=== PATIENT | female | born 1950 ===

== ENCOUNTER 2022-04-09 22:57 | Inpatient (IN) | payer MEDICARE ==
[~2022-04-09] VITALS: Ht 175.3 cm; Wt 62.6 kg
[2022-04-09] MEDS ORDERED: CARB1TAB21 PO (23:07)
[2022-04-09] MEDS ORDERED: MIRT-93 PO (23:07)
--- NOTE | 2022-04-09 23:14 | NUR ---
Pt medically cleared by Dr. Espinosa.
--- NOTE | 2022-04-09 23:45 | NUR ---
report given to November RN
[2022-04-10] MEDS ORDERED: TEMAZEPAM 7.5 MG CAPSULE PO PRN
[2022-04-10] MEDS ORDERED: ACETAMINOPHEN 325 MG TABLET PO PRN
[2022-04-10] MEDS ORDERED: MAG HYDROX/AL HYDROX/SIMETH 30 ML LIQUID UDC PO PRN
[2022-04-10] MEDS ORDERED: MAGNESIUM HYDROXIDE 30 ML LIQUID UDC PO PRN
--- NOTE | 2022-04-10 00:09 | NUR ---
Pt. admitted to MHU room 139B, under care of Dr. Willams Belongs List completed May RN aware of patient's arrival
--- NOTE | 2022-04-10 01:42 | NUR ---
GPS NOTES: Patient admitted to MHU, on 5150, as per hold patient had been aggressive and threatening her . Paranoid, delusional, tried to elope from grocery store, non-compliant with medications. Patient BIB nurse from Er via wheelchair. Upon face to face evaluation, patient is A&Ox3, ambulatory w/steady gait, her speech is clear, she is cooperative with initial interview process. She's able to understand concepts and verbalized understanding of the reason she's being admitted to the unit. Patient able to answer questions being asked. Patient appears to be well-nourish, no distress noted, and vital signs are normal. Head to toe assessment done, skin appears to be intact. Patient oriented to the unit and unit rules. She showered and assisted to her room. Patient rights explained to her, given her the rights handbook and advisement at bedside. Patient safety in place.
[2022-04-10 02:06] VITALS: BP 109/68
[2022-04-10 07:30] VITALS: BP 96/54
--- NOTE | 2022-04-10 09:00 | NUR ---
Calm and compliant with taking of medications. Interacts and attends activity.
[2022-04-10] MEDS: DIVALPROEX SPRINKLE 125 MG CAP.SPRINK PO SCH ×2 (09:22→20:53)
[2022-04-10] MEDS: ESCITALOPRAM OXALATE 10 MG TABLET NG SCH (09:22)
--- NOTE | 2022-04-10 12:44 | NUR ---
GPS: Nursing Notes: 5250 Hearing Request: Staff gave copy of 5250 to patient. Explained 5250 and informed patient that a certification review hearing will held within four days. Patient was inform that patient's right advocate will talk to her to provide assistance in preparing for the hearing or to answer questions or to provide other assistance. The court has been notified of this certification on this day via [facility] portal.
--- NOTE | 2022-04-10 13:30 | NUR ---
Eating well. At the activity area, reading books.
[2022-04-10 16:00] VITALS: BP 90/48
--- NOTE | 2022-04-10 18:09 | NUR ---
With family visitors, stayed at the dining area. Eating well
[2022-04-10 21:17] VITALS: BP 101/55
[2022-04-11 08:00] VITALS: BP 105/47
[2022-04-11 08:17] LABS: BILIRUBIN,TOTAL 0.8 mg/dL (0.2-1.0); CREATININE 0.6 mg/dL (0.6-1.3); POTASSIUM 4.2 mmol/L (3.5-5.1); TOTAL PROTEIN, SERUM 6.6 g/dL (6.4-8.2)
[2022-04-11] MEDS: DIVALPROEX SPRINKLE 125 MG CAP.SPRINK PO SCH ×2 (08:30→20:04)
[2022-04-11] MEDS: ESCITALOPRAM OXALATE 10 MG TABLET NG SCH (08:30)
[2022-04-11 16:17] VITALS: BP 109/58
[2022-04-11 19:43] VITALS: BP 112/51
[2022-04-11] MEDS: CARBIDOPA/LEVODOPA 25-100MG TABLET PO SCH (21:34)
[2022-04-12] MEDS ORDERED: ESCITALOPRAM OXALATE 10 MG TABLET PO SCH (01:16)
--- NOTE | 2022-04-12 05:12 | NUR ---
GPS: Remains asleep at this time. Breathing even and unlabored. Took bedtime meds.last night after some persuasion from staff. Pt.was paranoid and suspicious. Re-directed and re-assured prn. No aggressive behavior noted. Needs attended. Will continue to monitor.
[2022-04-12 07:52] VITALS: BP 113/70
[2022-04-12] MEDS: CARBIDOPA/LEVODOPA 25-100MG TABLET PO SCH ×4 (09:05→17:02)
[2022-04-12] MEDS: ESCITALOPRAM OXALATE 10 MG TABLET PO SCH (09:05)
[2022-04-12] MEDS: DIVALPROEX SPRINKLE 125 MG CAP.SPRINK PO SCH ×2 (09:05→20:33)
[2022-04-12] MEDS: PROTEIN SUPPLEMENT (PROSTAT) 30 ML LIQUID PO SCH (14:00)
[2022-04-12] MEDS: ENSURE ENLIVE (VAN) 240 ML LIQUID PO SCH ×2 (14:00→17:00)
--- NOTE | 2022-04-12 15:28 | NUR ---
JULIUS Initial Discharge Note: Pt currently resides at home with her , Nirav ([phone]) and full-time roll former located at [address] [place] [address]. Per Nirav, he would like pt to return home upon discharge. JULIUS will continue to work with pt, family and MD to ensure a safe and proper discharge plan.
[2022-04-12 16:06] VITALS: BP 111/63
--- NOTE | 2022-04-12 17:25 | NUR ---
GPS: Nursing Notes: Destructive Behavior To Others: Patient is awake and responding to her name, impaired judgment, paranoid behavior, sundown behavior, stated "MY wants me .. He is going to buried me here..", pressured and delayed speech, resistant with nursing care, refusing to participate in therapeutic groups, unable to formulate a viable plan for self care, needs a lot of prompting to be compliant with her medications, believes that staff is trying to poison her, redirected and reoriented during shift, continue to monitor for safety, continue with treatment plan.
[2022-04-12 19:57] VITALS: BP 102/68
--- NOTE | 2022-04-13 05:59 | NUR ---
GPS:pt remain paranoid stated people wants to to see me .Patient is awake and responding to her name, impaired judgment, pressured and delayed speech, resistant with nursing care, unable to formulate a viable plan for self care, needs a lot of prompting to be compliant with her medications, believes that staff is trying to poison her, redirected and reoriented during shift, assisted with adl's. continue plan of care.
--- NOTE | 2022-04-13 06:38 | NUR ---
slept 7.30 hrs through the night.
[2022-04-13 07:40] LABS: HEMATOCRIT 38.6 % (31.2-41.9); MEAN CORPUSCULAR HEMOGLOBIN 32.7 uug (24.7-32.8); MEAN CORPUSCULAR VOLUME 96.5 fL (75.5-95.3); PLATELET COUNT (AUTO) 266 K/uL (179-408)
[2022-04-13 07:53] LABS: THYROID STIMULATING HORMONE 2.413 mIU/mL (0.358-3.740)
[2022-04-13] MEDS: PROTEIN SUPPLEMENT (PROSTAT) 30 ML LIQUID PO SCH (08:00)
[2022-04-13] MEDS: ENSURE ENLIVE (VAN) 240 ML LIQUID PO SCH ×2 (08:00→17:00)
[2022-04-13 08:02] VITALS: BP 117/68
[2022-04-13 08:15] LABS: BILIRUBIN,TOTAL 0.8 mg/dL (0.2-1.0); CREATININE 0.6 mg/dL (0.6-1.3); MAGNESIUM 2.1 mg/dL (1.8-2.4); POTASSIUM 4.2 mmol/L (3.5-5.1); TOTAL PROTEIN, SERUM 6.6 g/dL (6.4-8.2)
[2022-04-13] MEDS: DIVALPROEX SPRINKLE 125 MG CAP.SPRINK PO SCH ×2 (08:47→20:20)
[2022-04-13] MEDS: CARBIDOPA/LEVODOPA 25-100MG TABLET PO SCH ×3 (08:47→16:52)
[2022-04-13] MEDS: ESCITALOPRAM OXALATE 10 MG TABLET PO SCH (08:47)
[2022-04-13] MEDS: NITROFURANTOIN/NITROFURAN MAC 100 MG CAPSULE PO SCH ×2 (13:09→20:20)
[2022-04-13 15:05] VITALS: BP 99/58
--- NOTE | 2022-04-13 17:43 | NUR ---
GPS: Nursing Notes: Destructive Behavior to Others: Patient is awake and responding to her name. Patient presented with anxiety and paranoia via being reluctant and weary, and believes her medications aren't working for her. Patient stated "I believe these medications are causing me harm." Staff educated patient and family on medications. Patient continues to be hesitant in taking her medications throughout the day, but compliant. Patient believes that staff is trying to poison her, believes that her is going to bury her here, unable to formulate a viable plan for self care. Unkept appearance, resistant to nursing care, internally preoccupied, continue with treatment plan.
[2022-04-13 20:08] VITALS: BP 111/62
--- NOTE | 2022-04-14 06:41 | NUR ---
GPS: Pt.slept 7.30 last night. Assisted to the bathroom earlier for elimination purposes. Remains paranoid,suspicious and guarded. Re-assured prn. No adverse reactions noted from atb. Med.compliant but needs prompting to take her meds. Will continue to monitor.
[2022-04-14 07:30] VITALS: BP 110/51
[2022-04-14] MEDS: ENSURE ENLIVE (VAN) 240 ML LIQUID PO SCH ×2 (08:50→17:21)
[2022-04-14] MEDS: PROTEIN SUPPLEMENT (PROSTAT) 30 ML LIQUID PO SCH (08:50)
[2022-04-14] MEDS: NITROFURANTOIN/NITROFURAN MAC 100 MG CAPSULE PO SCH ×2 (08:50→20:46)
[2022-04-14] MEDS: CARBIDOPA/LEVODOPA 25-100MG TABLET PO SCH ×3 (08:50→17:25)
[2022-04-14] MEDS: DIVALPROEX SPRINKLE 125 MG CAP.SPRINK PO SCH ×2 (08:50→20:46)
[2022-04-14] MEDS: ESCITALOPRAM OXALATE 10 MG TABLET PO SCH (08:50)
[2022-04-14] MEDS ORDERED: ESCITALOPRAM OXALATE 10 MG TABLET PO SCH (09:00)
[2022-04-14] MEDS ORDERED: ESCITALOPRAM OXALATE 10 MG TABLET PO ONE (09:45)
--- NOTE | 2022-04-14 14:56 | NUR ---
GPS: 14 DAY PCH DONE AND UPHELD FOR GD ONLY.
[2022-04-14 16:00] VITALS: BP 101/54
[2022-04-14 20:00] VITALS: BP 100/58
--- NOTE | 2022-04-14 23:42 | NUR ---
Patient awake alert oriented x1. Confused and disoriented to time,place. Ambulatory. On macrobid for UTI. Patient non-compliant with meds but for some encouragement patient will take it. Will monitor patient.All needs attended. Kept comfortable. No behavioral issues noted. VSS.
[2022-04-15 07:30] VITALS: BP 112/68
[2022-04-15] MEDS: PROTEIN SUPPLEMENT (PROSTAT) 30 ML LIQUID PO SCH (08:00)
[2022-04-15] MEDS: ENSURE ENLIVE (VAN) 240 ML LIQUID PO SCH ×2 (08:00→16:55)
[2022-04-15] MEDS ORDERED: ESCITALOPRAM OXALATE 10 MG TABLET PO SCH (09:00)
[2022-04-15] MEDS: DIVALPROEX SPRINKLE 125 MG CAP.SPRINK PO SCH ×2 (09:58→20:45)
[2022-04-15] MEDS: CARBIDOPA/LEVODOPA 25-100MG TABLET PO SCH ×3 (09:59→16:39)
[2022-04-15] MEDS: NITROFURANTOIN/NITROFURAN MAC 100 MG CAPSULE PO SCH ×2 (09:59→20:45)
[2022-04-15] MEDS: ESCITALOPRAM OXALATE 10 MG TABLET PO SCH (09:59)
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
--- NOTE | 2022-04-15 15:12 | NUR ---
Gps/Wrinkle Chaser- Encouraged participation in her group therapy , withdrawn , staying in bed most of the morning . Oriented x 1 .Fluids offered and encouraged, remains on oral abx., for UTI ., monitor medication compliance.
[2022-04-15 16:56] VITALS: BP 120/76
[2022-04-15 20:16] VITALS: BP 101/52
--- NOTE | 2022-04-16 03:49 | NUR ---
GPS NOTES: Patient received in bed, awake and responding to her name. She is confused, forgetful and paranoid. She talks about being deported, or how the bathroom has a lot of MRSA so re-assure patient at this time. Patient needs alot of prompting when taking her medications, as she is very suspicious of the side effects on her body. She slept well during shift. Frequent to restroom x1. Closely monitoring observed for safety.
[2022-04-16 07:30] VITALS: BP 109/57
[2022-04-16] MEDS: PROTEIN SUPPLEMENT (PROSTAT) 30 ML LIQUID PO SCH (08:00)
--- NOTE | 2022-04-16 08:26 | NUR ---
Gps/Onyx Chip Terrazzo Worker- Awake during the initial rounds, ambulated to the bathroom , continent of her bladder, set up hygiene.Denies any discomfort, claimed she's looking forward to going home .Safety reviewed. Guarded , interacts when engaged.
[2022-04-16] MEDS: NITROFURANTOIN/NITROFURAN MAC 100 MG CAPSULE PO SCH ×2 (08:39→21:13)
[2022-04-16] MEDS: ESCITALOPRAM OXALATE 10 MG TABLET PO SCH (08:40)
[2022-04-16] MEDS: DIVALPROEX SPRINKLE 125 MG CAP.SPRINK PO SCH ×2 (08:40→21:13)
[2022-04-16] MEDS: CARBIDOPA/LEVODOPA 25-100MG TABLET PO SCH ×3 (08:43→17:54)
[2022-04-16] MEDS: ENSURE ENLIVE (VAN) 240 ML LIQUID PO SCH ×2 (09:28→17:55)
--- NOTE | 2022-04-16 10:24 | NUR ---
Gps/Fitness Studies Teacher- Hesitancy taking her routine am meds. took 40 minutes of the staff trying to administer her medications. Noted some paranoia, thinks someone possible put some poison in her water , as well are giving her wrong medications that makes her addicted to them. Reviewed medications with patient , was able to take after .
[2022-04-16 16:37] VITALS: BP 117/63
[2022-04-16 19:46] VITALS: BP 103/55
[2022-04-16] MEDS: CLONAZEPAM 0.5 MG TABLET PO SCH (21:13)
--- NOTE | 2022-04-17 05:31 | NUR ---
Received patient in bed, very paranoid and delusional. This development writer provided reassurance and had a meaningful conversation with the patient on the reality of the situation and reinforced that her safety is priority. Education and Encourage needed for 15 to 20 minutes in order for the patient to take her medication. The patient was willing to take medication for anxiety and verbalized later on that the medication was helpful. Patient slept 7.30 hours so far. Safety Stratiges are in place and continuing to monitor the patient for anxiety and paranoid thoughts.
[2022-04-17] MEDS: ENSURE ENLIVE (VAN) 240 ML LIQUID PO SCH ×2 (08:00→17:18)
[2022-04-17] MEDS: PROTEIN SUPPLEMENT (PROSTAT) 30 ML LIQUID PO SCH (08:00)
[2022-04-17] MEDS: NITROFURANTOIN/NITROFURAN MAC 100 MG CAPSULE PO SCH ×2 (09:26→20:53)
[2022-04-17] MEDS: DIVALPROEX SPRINKLE 125 MG CAP.SPRINK PO SCH ×2 (09:26→20:53)
[2022-04-17] MEDS: ESCITALOPRAM OXALATE 10 MG TABLET PO SCH (09:26)
[2022-04-17] MEDS: CARBIDOPA/LEVODOPA 25-100MG TABLET PO SCH ×3 (09:26→17:13)
[2022-04-17 09:36] VITALS: BP 101/49
--- NOTE | 2022-04-17 17:58 | NUR ---
GPS: Nursing Notes: Destructive Behavior to Others: Patient is awake is responding to her name. Needs a lot of prompting to be compliant with her medications. Continued reassurance needed and given during each medication administration. Patient is confused and suspicious with every medication administration.
[2022-04-17 19:02] VITALS: BP 127/61
[2022-04-17 20:15] VITALS: BP 105/57
[2022-04-17] MEDS: CLONAZEPAM 0.5 MG TABLET PO SCH (20:53)
--- NOTE | 2022-04-18 05:10 | NUR ---
This patient appears less paranoid and anxious then the previous night. Very little prompting when taking medications and responds well to PRN Klonopin. The patient sat in the [facility] and socialized with this literary writer, was able to read magazines that were provided and ate a large snack before bed. Safety Stratiges are in place. No aggressive behavior noted.
[2022-04-18 07:42] VITALS: BP 136/53
[2022-04-18] MEDS: CARBIDOPA/LEVODOPA 25-100MG TABLET PO SCH ×3 (08:35→16:39)
[2022-04-18] MEDS: NITROFURANTOIN/NITROFURAN MAC 100 MG CAPSULE PO SCH (08:35)
[2022-04-18] MEDS: ESCITALOPRAM OXALATE 10 MG TABLET PO SCH (08:36)
[2022-04-18] MEDS: DIVALPROEX SPRINKLE 125 MG CAP.SPRINK PO SCH ×2 (08:36→20:06)
[2022-04-18] MEDS: ENSURE ENLIVE (VAN) 240 ML LIQUID PO SCH ×2 (08:37→16:40)
[2022-04-18] MEDS: PROTEIN SUPPLEMENT (PROSTAT) 30 ML LIQUID PO SCH (08:38)
[2022-04-18] MEDS: CLONAZEPAM 0.5 MG TABLET PO PRN (12:46)
--- NOTE | 2022-04-18 15:27 | NUR ---
GPS: Nursing Notes: Destructive Behavior To Others: Patient is awake and responding to her name, isolative and withdrawn in her room, minimal participation in therapeutic groups, suspicious, guarded, believes that she is getting better, encouraged to participate in therapeutic groups, unable to formulate a viable plan for self care, continue to monitor for safety, resistant with nursing care at times, gets easily anxious when redirected, continue with treatment plan.
[2022-04-18 16:12] VITALS: BP 94/46
[2022-04-18 19:56] VITALS: BP 100/57
--- NOTE | 2022-04-18 21:23 | NUR ---
GPS: Pt. seems less anxious tonight. More conversant with staff and other peers. Less paranoid and suspicious. Took bedtime med.as ordered. Ate snacks in the dining room area and walked a little bit along the hallways. Denies pain nor any form of discomfort. Safety emphasized. Will continue to monitor.
[2022-04-19 07:41] VITALS: BP 100/55
[2022-04-19] MEDS: CARBIDOPA/LEVODOPA 25-100MG TABLET PO SCH ×3 (08:48→16:41)
[2022-04-19] MEDS: DIVALPROEX SPRINKLE 125 MG CAP.SPRINK PO SCH ×2 (08:48→21:19)
[2022-04-19] MEDS: ESCITALOPRAM OXALATE 10 MG TABLET PO SCH (08:48)
[2022-04-19] MEDS: ENSURE ENLIVE (VAN) 240 ML LIQUID PO SCH ×2 (08:49→16:41)
[2022-04-19] MEDS: PROTEIN SUPPLEMENT (PROSTAT) 30 ML LIQUID PO SCH (08:49)
[2022-04-19] MEDS ORDERED: DIVALPROEX SPRINKLE 125 MG CAP.SPRINK PO SCH (09:00)
--- NOTE | 2022-04-19 10:17 | NUR ---
Firearms Report: Drivers License Examiner completed and submitted a [employer] firearms report for 5150 a danger to self and a danger to others. A copy of report has been placed in patient chart.
--- NOTE | 2022-04-19 13:59 | NUR ---
GPS: Nursing Notes: Destructive Behavior To others: Patient is awake and responding to her name, cooperative with nursing care, compliant with her medications, less paranoid, minimal participation in therapeutic groups, needs prompting to participate, isolative and withdrawn in her room, low energy level, depressed mood and flat affect, believes that she is getting better, exercising by walking on the hallway, unable to formulate a viable plan for self care, continue to monitor for safety, continue with treatment plan.
[2022-04-19 16:12] VITALS: BP 101/58
[2022-04-19 20:03] VITALS: BP 94/50
[2022-04-20] MEDS: PROTEIN SUPPLEMENT (PROSTAT) 30 ML LIQUID PO SCH (08:00)
[2022-04-20] MEDS: ENSURE ENLIVE (VAN) 240 ML LIQUID PO SCH ×2 (08:25→16:38)
[2022-04-20] MEDS: DIVALPROEX SPRINKLE 125 MG CAP.SPRINK PO SCH ×2 (08:25→20:18)
[2022-04-20] MEDS: CARBIDOPA/LEVODOPA 25-100MG TABLET PO SCH ×3 (08:25→16:37)
[2022-04-20] MEDS: ESCITALOPRAM OXALATE 10 MG TABLET PO SCH (08:25)
[2022-04-20 08:54] VITALS: BP 99/51
--- NOTE | 2022-04-20 12:18 | NUR ---
JULIUS Family Contact: Pts sonEnmanuel ([phone]) contacted JULIUS and inquired questions about pt's discharge plan. JULIUS informed pt's son, Enmanuel that pt will discharge to [facility] upon discharge per pt's /DPOA, Nirav. Enmanuel continued to ask SW if pt can discharge home with him or if we have to move forward with the DPOA. JULIUS informed Enmanuel that the hospital requires to move forward with the DPOA's request. Enmanuel understand and was agreeable.
[2022-04-20 17:05] VITALS: BP 101/64
[2022-04-20 20:02] VITALS: BP 115/64
[2022-04-21 07:30] VITALS: BP 119/66
[2022-04-21] MEDS: ESCITALOPRAM OXALATE 10 MG TABLET PO SCH (09:07)
[2022-04-21] MEDS: DIVALPROEX SPRINKLE 125 MG CAP.SPRINK PO SCH ×2 (09:07→21:01)
[2022-04-21] MEDS: ENSURE ENLIVE (VAN) 240 ML LIQUID PO SCH ×2 (09:09→17:40)
[2022-04-21] MEDS: PROTEIN SUPPLEMENT (PROSTAT) 30 ML LIQUID PO SCH (09:11)
[2022-04-21] MEDS: CARBIDOPA/LEVODOPA 25-100MG TABLET PO SCH ×3 (09:14→17:40)
--- NOTE | 2022-04-21 16:23 | NUR ---
Patient is confused, disoriented, suspicious with medications, paranoid about being poisoned, compliant with medications with lots of prompts, cooperative with nursing care. A/O X 2 to person. Patient requires more than minimal assistance with ADL. Emotional support provided. Fall and safety precautions implemented.
[2022-04-21 17:13] VITALS: BP 98/57
[2022-04-21 19:54] VITALS: BP 90/47
--- NOTE | 2022-04-21 21:38 | NUR ---
GPS: Nursing Notes: Received Patient lying in bed. patient is awake and responding to her name.noted isolative and withdrawn. patient is suspicious, guarded, stated am i safe to stay hear. patient unable to formulate a viable plan for self care, continue to monitor for safety, resistant with nursing care at times, gets easily anxious when redirected, encouraged to ventilate feelings. continue with treatment plan.
[2022-04-21] MEDS: CLONAZEPAM 0.5 MG TABLET PO PRN (23:29)
--- NOTE | 2022-04-21 23:30 | NUR ---
patient c/o agitation . klonopin 0.5 mg po prn given.
--- NOTE | 2022-04-22 | NUR ---
patient is calm now. prn effective for agitation.
--- NOTE | 2022-04-22 05:57 | NUR ---
GPS: Remain paranoid through the night. prn given for agitation and effective. slept 6.45 hrs through the night. continue plan of care.
[2022-04-22 07:30] VITALS: BP 99/57
[2022-04-22] MEDS: PROTEIN SUPPLEMENT (PROSTAT) 30 ML LIQUID PO SCH (09:19)
[2022-04-22] MEDS: ESCITALOPRAM OXALATE 10 MG TABLET PO SCH (09:19)
[2022-04-22] MEDS: CARBIDOPA/LEVODOPA 25-100MG TABLET PO SCH ×3 (09:19→17:38)
[2022-04-22] MEDS: ENSURE ENLIVE (VAN) 240 ML LIQUID PO SCH ×2 (09:19→17:39)
[2022-04-22] MEDS: DIVALPROEX SPRINKLE 125 MG CAP.SPRINK PO SCH ×2 (09:19→20:09)
--- NOTE | 2022-04-22 10:08 | NUR ---
Social Work Coordination of Care: Post Hole Digging Machine Operator faxed patient's referral packet including: History and Physical, Consultation, Progress Notes, Medication List and Labs to the following facilities for review and possible custodial placement: [facility] F:[phone] P: [phone]
[2022-04-22 16:00] VITALS: BP 103/58
--- NOTE | 2022-04-22 16:17 | NUR ---
SW Discharge Update: lAis from [facility] in [place] ([phone]) contacted this process description writer and informed SW that pt is accepted for continuation of care at their facility tomorrow, 04/23/22 with transportation provided at 11AM.
--- NOTE | 2022-04-22 16:22 | NUR ---
JULIUS Family Contact: SW informed pt's DPOA/, Nirav ([phone]) and [id number], Sharla ([phone]) that per Alis [phone] at [facility] [phone] in [place], pt is accepted for continuation of care upon discharge on 04/23/22 at 11AM. Family is aware that facility is providing transportation.
--- NOTE | 2022-04-22 16:23 | NUR ---
Patient is very confused, not knowing where she is and what she wants, cooperative with nursing care, compliant with medications, able to eat and go to the bathroom on her own. Reality orientation provided. Fall and safety precautions implemented.
[2022-04-22 20:30] VITALS: BP 91/52
--- NOTE | 2022-04-22 21:32 | NUR ---
GPS: Pt.is less anxious tonight but remains paranoid and suspicious. Re-directed and re-assured prn. Med.compliant. Safety emphasized. Will continue to monitor.
[2022-04-23 07:30] VITALS: BP_SYST 105; BP_SYST 195; BP_DIAS 48; BP_DIAS 96
[2022-04-23] MEDS: CARBIDOPA/LEVODOPA 25-100MG TABLET PO SCH (09:26)
[2022-04-23] MEDS: DIVALPROEX SPRINKLE 125 MG CAP.SPRINK PO SCH (09:26)
[2022-04-23] MEDS: ESCITALOPRAM OXALATE 10 MG TABLET PO SCH (09:26)
[2022-04-23] MEDS: PROTEIN SUPPLEMENT (PROSTAT) 30 ML LIQUID PO SCH (09:26)
[2022-04-23] MEDS: ENSURE ENLIVE (VAN) 240 ML LIQUID PO SCH (09:27)
--- NOTE | 2022-04-23 09:36 | NUR ---
JULIUS Discharge Note: Pt will be discharged to [facility] [phone] via facility transportation at 11AM. JULIUS spoke with admin coordinator, Alis ([phone]) and Haleigh ([phone]) at the facility who state they are ready to accept the patient today. Pt is aware and agreeable with discharge plan. Pts DPOA/, Nirav [phone] is aware and agreeable with the discharge plan. JULIUS also confirmed with pts [id number], Sharla ([phone]) regarding the final discharge plan to [facility]. Pt is alert and oriented x2, is unable to plan for self-care at this time. However, pt is willing to accept care at [facility]. Pt denies any suicidal or homicidal ideation. Pt will follow-up at the facility with their Psychiatrist, Dr. Rouse and Bench Worker Binding, Dr. Vivar. Pt presents with calm mood and congruent affect. [facility]AC[facility]: [facility] ([phone]) [address] [facility]
--- NOTE | 2022-04-23 11:36 | NUR ---
Received orders to discharge this patient to [facility] by Facility transportation. Patient's belongings were returned to the patient. Patient refused to sign discharge documentation. Patient denies SI/HI AH/VH, SOB, pain or any discomfort. Patient left the unit at 11:35 am. Patient is A/O X 1 -2 to person, confused, forgetful, cooperative, pleasant. Emotional support provided. Fall and safety precautions implemented.
== END 2022-04-23 11:35 | DRG 881 ==
LOC: ER 22:57 → GPS 23:50
PROVIDERS: ADMIT Psychiatry & Neurology Psychiatry; ATTEND Internal Medicine
DX: F32.9 Major depressive disorder, single episode, unspecified (principal); F01.51 Vascular dementia, unspecified severity, with behavioral disturbance; F02.81 Dementia in other diseases classified elsewhere, unspecified severity, with behavioral disturbance; D68.59 Other primary thrombophilia; F23 Brief psychotic disorder; N39.0 Urinary tract infection, site not specified; G20 Parkinson's disease; F39 Unspecified mood [affective] disorder; Z74.09 Other reduced mobility; Z20.822 Contact with and (suspected) exposure to COVID-19; F41.9 Anxiety disorder, unspecified
CPT/HCPCS: 36415; 71045; 80164; 83735; 84100; 84443; 85025; A4663